=== PATIENT | male | born 1955 | race Caucasian/White ===

== ENCOUNTER 2018-01-20 13:24 | Outpatient (CLI) | payer OTHER ==
[2018-01-20 17:09] VITALS: BP 138/86
--- NOTE | 2018-01-21 10:01 | XRAY Report ---
CARDIOVASCULAR TREADMILL TEST There was no imaging performed for this exam. Procedure notes and results available in the EMR. GAURAV
--- NOTE | 2018-01-26 18:07 | CARDIAC PROCEDURE NOTE ---
DATE OF SERVICE: 01/20/2018 Physician: JAG Lloyd PRIMARY CARE PHYSICIAN: Dr. Benjamín Diaz, MICKIE Coates. PROCEDURE: Cardiac treadmill stress test. PROCEDURE SYMPTOMS: Progressing atypical chest pain. CARDIAC RISK FACTORS: Include age, hypertension, and hyperlipidemia. PREVIOUS CARDIAC PROCEDURES: None. MEDICATIONS HELD: Last dose of atenolol 2 days ago, last caffeine intake 8 a.m. CLINICAL HISTORY: A 63-year-old male without known coronary artery disease. INITIAL RESTING VITAL SIGNS: Blood pressure 138/86, heart rate 78, height 68 inches, weight 220 pounds, BMI 33.4. PROCEDURE AND FINDINGS: Patient identity and date verified. Consent signed. The patient performed treadmill exercise using a Felipe protocol, completing 10 minutes, 0.4 seconds and completing an estimated workload of 12.04 metabolic equivalents. Maximal blood pressure was 192/84 with a heart rate of 179 or 112% of maximum predicted heart rate for age. The blood pressure response to exercise was within normal limits. The patient stopped because he met his goal of exercising 10 minutes and his legs were tiring. The resting ECG demonstrated normal sinus rhythm with no abnormality. Maximum ST-segment depression was less than 0.5 mm and upsloping. There was rare PVC ectopy. FINAL IMPRESSIONS 1. Negative stress electrocardiogram for ischemia by electrocardiographic criteria. 2. Negative stress test clinically for angina. 3. Rare PVC. 4. [place] [employer] functional class I. 5. MELA percent: -16.5% indicating increased fitness over expected baseline. TD: 01/26/2018 18:06 [facility]
== END 2018-01-20 13:25 | disposition home or self-care (01) ==
LOC: DI 13:24
PROVIDERS: ATTEND Family Medicine
DX: R07.9 Chest pain, unspecified (principal); I10 Essential (primary) hypertension; E78.5 Hyperlipidemia, unspecified
CPT/HCPCS: 93017

== ENCOUNTER 2019-01-08 12:23 | Outpatient (CLI) | payer OTHER | END 2019-01-08 12:24 | disposition home or self-care (01) | LOC: DI 12:23 | PROVIDERS: ATTEND Family Medicine | DX: R60.9 Edema, unspecified (principal); I34.0 Nonrheumatic mitral (valve) insufficiency | CPT/HCPCS: 93306 ==

== ENCOUNTER 2019-03-23 11:54 | Day surgery (SDC) | payer OTHER ==
[~2019-03-23 11:54] MED LIST: LIDO GARGLE 30 ML BOTTLE ONE
[2019-03-23] MEDS ORDERED: LACTATED RINGERS 1,000 ML IV ONE (12:43)
[2019-03-23] MEDS ORDERED: fentaNYL 250 MCG/5 ML VIAL IVP ONE (13:50)
[2019-03-23] MEDS ORDERED: MIDAZOLAM 2 MG/2 ML VIAL IVP ONE (13:50)
[2019-03-23] MEDS ORDERED: LIDO GARGLE 30 ML BOTTLE PO ONE (14:02)
[2019-03-23 15:25] VITALS: BP 118/87
== END 2019-03-23 11:55 | disposition home or self-care (01) ==
LOC: SDS 11:54
PROVIDERS: ATTEND Internal Medicine Gastroenterology
PROC: 0DB48ZX Excision of Esophagogastric Junction, Via Natural or Artificial Opening Endoscopic, Diagnostic (ICD-10-PCS; 2019-03-23)
PROC: 0DB78ZX Excision of Stomach, Pylorus, Via Natural or Artificial Opening Endoscopic, Diagnostic (ICD-10-PCS; 2019-03-23)
PROC: 0DBK8ZZ Excision of Ascending Colon, Via Natural or Artificial Opening Endoscopic (ICD-10-PCS; principal; 2019-03-23 14:00)
PROC: 0DBN8ZZ Excision of Sigmoid Colon, Via Natural or Artificial Opening Endoscopic (ICD-10-PCS; 2019-03-23 14:00)
DX: Z12.11 Encounter for screening for malignant neoplasm of colon (principal); D12.2 Benign neoplasm of ascending colon; D12.5 Benign neoplasm of sigmoid colon; K57.30 Diverticulosis of large intestine without perforation or abscess without bleeding; K21.9 Gastro-esophageal reflux disease without esophagitis; K29.50 Unspecified chronic gastritis without bleeding; I10 Essential (primary) hypertension; E66.9 Obesity, unspecified; Z68.33 Body mass index [BMI] 33.0-33.9, adult
CPT/HCPCS: 43239; 45380; A9270; J3010; J7120

== ENCOUNTER 2020-10-29 07:06 | Day surgery (SDC) | payer OTHER ==
[2020-10-29] MEDS ORDERED: ceFAZolin 2 GM/50 ML 2 GM/50 ML BAG IV ONE (07:36)
[2020-10-29] MEDS ORDERED: PROPOFOL 200 MG/20 ML VIAL IVP ONE (07:42)
[2020-10-29] MEDS ORDERED: LIDOCAINE-MPF 2% 5 ML VIAL ONE (07:43)
[2020-10-29] MEDS ORDERED: LACTATED RINGERS 1,000 ML IV ONE ×2 (07:51→09:25)
[2020-10-29] MEDS ORDERED: BUPIVACAINE 0.5% PF 30 ML VIAL ONE (08:21)
[2020-10-29] MEDS ORDERED: fentaNYL 100 MCG/2 ML VIAL ONE (08:30)
[2020-10-29] MEDS ORDERED: BUPIVACAINE 0.5% PF 30 ML VIAL SUBQ ONE (08:50)
--- NOTE | 2020-10-29 08:52 | ANESTHESIA ---
Pre-Anesthesia VS, & Labs - Diagnosis Right Olecranon bursitis - Procedure right olecranon bursectomy Vital Signs: Temp Pulse Resp BP Pulse Ox 36.8 C 73 18 162/104 H 100 10/29/20 07:37 10/29/20 07:37 10/29/20 07:37 10/29/20 07:37 10/29/20 07:37 Height: 5 ft 8 in Weight (kg): 98 kg Body Mass Index: 32.8 BMI Classification: Obese - NPO >8 hours Home Medications and Allergies Home Medications: Ambulatory Orders Colchicine 0.6 mg PO PRN 10/23/20 allopurinoL [Zyloprim] 200 mg PO DAILY 10/23/20 Aspirin 81 mg PO DAILY 03/22/19 Atorvastatin [Lipitor] 10 mg PO DAILY 03/22/19 Furosemide 20 mg PO DAILY PRN 03/22/19 Losartan Potassium 100 mg PO DAILY 03/22/19 Omeprazole 20 mg PO DAILY 03/22/19 Colchicine 0.6 mg PO PRN 10/23/20 allopurinoL [Zyloprim] 200 mg PO DAILY 10/23/20 Allergies/Adverse Reactions: Allergies Allergy/AdvReac Type Severity Reaction Status Date / Time No Known Drug Allergies Allergy Verified 10/23/20 10:42 Anes History & Medical History - Anesthetic History Anesthesia Complications: reports: No previous complications - Medical History Cardiovascular: reports: Hypertension (well controlled on single agent), High cholesterol Pulmonary: reports: None Gastrointestinal: reports: GERD (well controlled on single agent, no recent sy mptoms) Urinary: reports: None Musculoskeletal: reports: Other Endocrine/Autoimmune: reports: None Skin: reports: None - Surgical History General: Colonoscopy Eyes Ears Nose Throat (EENT): Other Exam General: Alert, Oriented x3, Cooperative, No acute distress Dental: WNL Mouth Openin Fingerbreadth Neck Mobility: Normal Mallampati classification: II Thyromental Distance: 4-6 cm Respiratory: Lungs clear, Normal breath sounds, No respiratory distress, No accessory muscle use Cardiovascular: Regular rate, Normal S1, Normal S2, No murmurs Mental/Cognitive Status: Alert/Oriented X3, Normal for patient Cognitive Status: Within normal limits Plan Anesthesia Type: General Consent for Procedure(s) Verified and Reviewed: Yes Code Status: Attempt Resuscitation ASA classification: 2-Mild systemic disease Is this case an emergency?: No
[2020-10-29] MEDS ORDERED: HYDROmorphone 0.5 MG/0.5 ML SYRINGE IVP PRN (08:53)
[2020-10-29] MEDS ORDERED: ACETAMINOPHEN 1,000 MG/100 ML 100 ML IV ONE ×2 (08:53→09:56)
[2020-10-29] MEDS ORDERED: NALOXONE 0.4 MG/ML VIAL IVP PRN (08:53)
[2020-10-29] MEDS ORDERED: ATROPINE ABBOJECT 1 MG/10 ML SYRINGE IVP PRN (08:53)
[2020-10-29] MEDS ORDERED: ONDANSETRON 4 MG/2 ML VIAL IVP PRN ×2 (08:53→09:36)
[2020-10-29] MEDS ORDERED: MORPHINE 2 MG/ML CARPUJECT IVP PRN (08:53)
[2020-10-29] MEDS ORDERED: ePHEDrine 50 MG/ML VIAL IVP PRN (08:53)
[2020-10-29] MEDS ORDERED: fentaNYL 100 MCG/2 ML VIAL IVP PRN (08:53)
[2020-10-29] MEDS ORDERED: LACTATED RINGERS 1,000 ML IV SCH (09:00)
[2020-10-29] MEDS ORDERED: oxyCODONE 5 MG TABLET PO PRN (09:36)
--- NOTE | 2020-10-29 09:40 | OPERATIVE REPORT ---
Operative Report - Other Other Information/Narrative: Date of Surgery: 29 October 2020 Pre-Op Diagnosis: Right elbow chronic olecranon bursitis Procedure: Right olecranon bursa excision Postop Diagnosis: Same Primary Surgeon: Andreas Coles Secondary Surgeon: None Complications: None Tourniquet Time: 32 minutes EBL: 5 cc Implants: None Postoperative Protocol: Light range of motion until 2 weeks. No manual labor until 4 weeks.. Indication For Surgery: 65-year-old male with chronic bursitis and is painful, tender, and with poor cosmesis. He has had it drained on multiple occasions with recurrence every time and continued symptoms. The risks, benefits, and alternatives were discussed. Risks include pain, bleeding, infection, damage to nearby structures, numbness, lack of symptom relief, implant complications, nonunion, need for further surgery, DVT, PE, stroke, and . Written consent was obtained. Procedure in Detail: The patient was met in the pre-operative hold area on the day of the procedure. The operative extremity was signed and questions were answered. The patient was brought to the operating room and a general anesthetic was administered. Supine position was used and all bony prominences were padded. Standard prepping and draping was performed. A time out confirmed patient identification, laterality, procedure, allergies, antibiotics, and images. An Esmarch was used to exsanguinate the limb and the tourniquet was elevated to 250 mmHg. The ulnar side was identified and marked on the skin. A curvilinear incision was made going a radial at the olecranon tip. Sharp dissection was carried down to the bursa the bursa was excised en bloc using sharp and blunt dissection. I investigated the olecranon tip and found there to be some small protuberances. These were shaved with a rasp. The small early enthesophyte that is seen on x- ray was entirely within the triceps tendon and debriding the tendon and removing this was not deemed to be necessary. The wound was irrigated copiously and closed in a layered fashion with 2-0 Vicryl in the dermis and running Monocryl in the skin. A sterile dressing was applied. He was awakened and transferred to recovery room
[2020-10-29 10:17] VITALS: BP 136/79
--- NOTE | 2020-10-29 13:41 | ANESTHESIA POST OP EVALUATION ---
Anesthesia Post Eval - Post Anesthesia Eval Vitals: Last Vital Signs Temp 36.8 C 10/29/20 09:54 Pulse 77 10/29/20 10:15 Resp 18 10/29/20 10:15 BP 136/79 H 10/29/20 10:15 Pulse Ox 95 10/29/20 10:15 CV Function Including HR & BP: positive: Stable Pain Control: positive: Satisfactory Nausea & Vomiting: positive: Negative Mental Status: positive: Baseline Respiratory Status: Airway Patent Hydration Status: Satisfactory Anesthesia Complications: positive: None
== END 2020-10-29 07:07 | disposition home or self-care (01) ==
LOC: SDS 07:06
PROVIDERS: ATTEND Orthopaedic Surgery
DX: M70.21 Olecranon bursitis, right elbow (principal); K21.9 Gastro-esophageal reflux disease without esophagitis; I10 Essential (primary) hypertension; E78.5 Hyperlipidemia, unspecified; M10.9 Gout, unspecified; H90.5 Unspecified sensorineural hearing loss; H93.19 Tinnitus, unspecified ear; E66.9 Obesity, unspecified; Z68.32 Body mass index [BMI] 32.0-32.9, adult; Z79.82 Long term (current) use of aspirin; Z79.899 Other long term (current) drug therapy; Z87.891 Personal history of nicotine dependence